=== PATIENT | male | born 1945 | race Asian ===

== ENCOUNTER → 2017-03-08 | Outpatient (CLI) | payer MEDICARE ==
[~2017-03-08] MED LIST: ATOR10TA PO; DILT120C64 PO; FLUT1AER PO; MONT10TA6 PO
[2017-03-08 11:37] LABS: HEMATOCRIT 44.6 % (39.2-51.8); HEMOGLOBIN 15.5 g/dL (13.7-18.0); WHITE BLOOD COUNT 5.6 x10^3/uL (3.4-10)
[2017-03-08 12:31] LABS: BLOOD UREA NITROGEN 14 mg/dL (7-18)
[2017-03-08 12:53] LABS: ASPARTATE AMINO TRANSFERASE 21 U/L (15-37)
== END | disposition home or self-care (01) ==
LOC: STAR 10:39
PROVIDERS: ATTEND Internal Medicine Cardiovascular Disease
DX: Z01.818 Encounter for other preprocedural examination (principal); R79.1 Abnormal coagulation profile
CPT/HCPCS: 36415; 71020; 80053; 85025; 85610; 85730

== ENCOUNTER 2017-03-13 06:18 | Day surgery (SDC) | payer MEDICARE ==
[~2017-03-13] VITALS: Ht 167.6 cm; Wt 84.1 kg
[2017-03-13] MEDS ORDERED: SODIUM CHLORIDE 0.9% 1,000 ML IV SCH (06:27)
[2017-03-13] MEDS ORDERED: MIDAZOLAM 1 MG/ML, 5ML ONE (07:52)
[2017-03-13] MEDS ORDERED: FENTANYL PF 100 MCG/2ML ONE (07:52)
[2017-03-13] MEDS ORDERED: LIDOCAINE 2%, 20ML ONE (07:52)
[2017-03-13] MEDS ORDERED: ADENOSINE 6 MG/2 ML ONE (07:52)
[2017-03-13] MEDS ORDERED: ISOPROTERENOL 0.2MG/ML, 5ML ONE (07:52)
[2017-03-13] MEDS ORDERED: ACETAMINOPHEN 325 MG TABLET PO PRN (10:00)
[2017-03-13] MEDS ORDERED: ATORVASTATIN 10 MG TABLET PO SCH (21:00)
[2017-03-14] MEDS ORDERED: FLUTICASONE/VILANTEROL 100-25MCG/INH HOMEINH SCH (09:00)
[2017-03-14] MEDS ORDERED: MONTELUKAST 10 MG TABLET PO SCH (09:00)
== END 2017-03-13 14:10 | disposition home or self-care (01) ==
LOC: CACL 06:18
PROVIDERS: ATTEND Internal Medicine Cardiovascular Disease
DX: I47.1 Supraventricular tachycardia (principal); E78.5 Hyperlipidemia, unspecified; E03.9 Hypothyroidism, unspecified; J45.909 Unspecified asthma, uncomplicated; I10 Essential (primary) hypertension; Z87.891 Personal history of nicotine dependence
CPT/HCPCS: 93613; 93621; 93623; 93653; 99156; 99157; C1730; C1766; C1894; C2630; J2250; J3010; J3490; J0153